=== PATIENT | male | born 1940 | race African-American/Black ===

== ENCOUNTER 2016-12-19 08:33 | Day surgery (SDC) | payer OTHER ==
[2016-12-19] MEDS ORDERED: NS 500 ML IV 500 ML IV ONE (08:39)
[2016-12-19] MEDS ORDERED: TETRACAINE 0.5% OPHTH 1 DOSE AFFEYE ONE (08:57)
[2016-12-19] MEDS ORDERED: VIGAMOX 0.5% OPHTH 1 DOSE AFFEYE ONE ×4 (08:58→11:20)
[2016-12-19] MEDS ORDERED: PROLENSA OPHTH 1 DOSE AFFEYE ONE (09:09)
[2016-12-19] MEDS ORDERED: ALPHAGAN-P OPHTH 1 DOSE AFFEYE ONE (09:10)
[2016-12-19] MEDS ORDERED: MYDRIACIL OPHTH 1 DOSE AFFEYE ONE ×4 (09:11→09:14)
[2016-12-19] MEDS ORDERED: CYCLOGYL 1% OPHTH 1 DOSE OP ONE ×4 (09:11→09:14)
[2016-12-19] MEDS ORDERED: AK-DILATE 2.5% OPHTH 1 DOSE OP ONE ×4 (09:11→09:14)
[2016-12-19] MEDS ORDERED: BETADINE OPHTH SOLN 5% EACHEYE ONE (11:05)
[2016-12-19] MEDS ORDERED: TETRACAINE HCL AFFEYE ONE (11:05)
[2016-12-19 14:54] VITALS: BP 158/86
== END 2016-12-19 12:05 | disposition home or self-care (01) ==
LOC: SURG1 08:33
PROVIDERS: ATTEND Ophthalmology
PROC: 08U107Z Supplement of Left Eye with Autologous Tissue Substitute, Open Approach (ICD-10-PCS; principal; 2016-12-19 14:15)
PROC: 08BTXZX Excision of Left Conjunctiva, External Approach, Diagnostic (ICD-10-PCS; principal; 2016-12-19 14:15)
PROC: 08RK3JZ Replacement of Left Lens with Synthetic Substitute, Percutaneous Approach (ICD-10-PCS; principal; 2016-12-19 14:15)
PROC: 08DK3ZZ Extraction of Left Lens, Percutaneous Approach (ICD-10-PCS; principal; 2016-12-19 14:15)
DX: H11.002 Unspecified pterygium of left eye (principal)
CPT/HCPCS: 99100; A4217

== ENCOUNTER 2017-09-11 09:42 | Day surgery (SDC) | payer OTHER ==
[2017-09-11] MEDS ORDERED: DIPRIVAN VIAL ONE (10:22)
[2017-09-11] MEDS ORDERED: NS 500 ML IV 500 ML IV ONE (10:48)
[2017-09-11] MEDS ORDERED: TETRACAINE 0.5% OPHTH 1 DOSE AFFEYE ONE ×2 (10:50→13:47)
[2017-09-11] MEDS ORDERED: VIGAMOX 0.5% OPHTH 1 DOSE AFFEYE ONE ×5 (10:51→14:22)
[2017-09-11] MEDS ORDERED: PROLENSA OPHTH 1 DOSE AFFEYE ONE (11:02)
[2017-09-11] MEDS ORDERED: ALPHAGAN-P OPHTH 1 DOSE AFFEYE ONE (11:03)
[2017-09-11] MEDS ORDERED: MYDRIACIL OPHTH 1 DOSE AFFEYE ONE ×3 (11:04→11:06)
[2017-09-11] MEDS ORDERED: CYCLOGYL 1% OPHTH 1 DOSE OP ONE ×3 (11:04→11:06)
[2017-09-11] MEDS ORDERED: AK-DILATE 2.5% OPHTH 1 DOSE OP ONE ×3 (11:04→11:06)
[2017-09-11] MEDS ORDERED: BETADINE OPHTH SOLN 5% EACHEYE ONE (13:45)
[2017-09-11] MEDS ORDERED: ADRENALINE CHL INJ IJ ONE ×2 (14:01→14:12)
[2017-09-11] MEDS ORDERED: DUOVISC IO ONE ×2 (14:02→14:12)
[2017-09-11] MEDS ORDERED: XYLOCAINE-MPF 1% IJ ONE ×2 (14:02→14:12)
[2017-09-11] MEDS ORDERED: BSS OPHTH (PLAIN) 500 ML with VANCOMYCIN HCL 500 MG VIAL 25 MG, ADRENALINE CHL INJ 1 MG IR ONE ×6 (14:05)
[2017-09-11 14:43] VITALS: BP 138/82
== END 2017-09-11 14:44 | disposition home or self-care (01) ==
LOC: SURG1 09:42
PROVIDERS: ATTEND Ophthalmology
PROC: 08DK3ZZ Extraction of Left Lens, Percutaneous Approach (ICD-10-PCS; principal; 2017-09-11 17:30)
PROC: 08RK3JZ Replacement of Left Lens with Synthetic Substitute, Percutaneous Approach (ICD-10-PCS; principal; 2017-09-11 17:30)
DX: H25.12 Age-related nuclear cataract, left eye (principal); H25.012 Cortical age-related cataract, left eye; H25.042 Posterior subcapsular polar age-related cataract, left eye
CPT/HCPCS: 99100; A4222; A4217; J0170; J3370; J3490